=== PATIENT | female | born 1995 | race Caucasian/White ===

== ENCOUNTER 2016-05-24 09:42 | Emergency (ER) | payer OTHER ==
[~2016-05-24] VITALS: Ht 157.5 cm; Wt 51.1 kg
[~2016-05-24 09:42] MED LIST: ACET-2264 PO; AZIT250T PO; BENZ-13 PO; HYDR-3702 PO; LRT10T PO; ONDAN4ODT PO
[2016-05-24] MEDS ORDERED: AZIT250T81 PO (10:23)
[2016-05-24] MEDS ORDERED: BENZ-22 PO (10:23)
[2016-05-24] MEDS ORDERED: TRM50T PO (10:23)
[2016-05-24 14:44] VITALS: BP 117/70
== END 2016-05-24 10:40 | disposition home or self-care (01) ==
LOC: ED 09:48
DX: J01.10 Acute frontal sinusitis, unspecified (principal); J01.00 Acute maxillary sinusitis, unspecified
CPT/HCPCS: 99282; 99283